=== PATIENT | male | born 1970 | race African-American/Black ===

== ENCOUNTER 2016-02-02 14:52 | Inpatient (IN) | payer OTHER ==
[2016-02-02 15:09] VITALS: BMI 27.3
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
[2016-02-02] MEDS ORDERED: guaiFENesin/D-METHORPHAN HB 10 ML UNIT-DOSE CUPS PO PRN (16:19)
[2016-02-02] MEDS ORDERED: chlordiazePOXIDE HCL 25 MG CAPSULE PO PRN (16:19)
[2016-02-02] MEDS ORDERED: METHADONE HCL 10 MG TABLET (FOR DETOX USE ONLY) PO ONE ×3 (16:19→23:00)
[2016-02-02] MEDS ORDERED: hydrOXYzine PAMOATE 50 MG CAPSULE (FP) PO PRN (16:19)
[2016-02-02] MEDS ORDERED: MENTHOL/PHENOL 1 EACH UD MM PRN (16:19)
[2016-02-02] MEDS ORDERED: ACETAMINOPHEN 325 MG TABLET (FP) PO PRN (16:19)
[2016-02-02] MEDS ORDERED: chlordiazePOXIDE HCL 25 MG CAPSULE PO ONE (16:19)
[2016-02-02] MEDS ORDERED: IBUPROFEN 400 MG TABLET (FP) PO PRN (16:19)
[2016-02-02] MEDS ORDERED: MAGNESIUM HYDROX 2400MG/30ML ORAL SUSPENSION 30 ML CUP PO PRN (16:19)
[2016-02-02] MEDS ORDERED: MAG HYDROX/AL HYDROX/SIMETH 30 ML UNIT-DOSE CUP PO PRN (16:19)
[2016-02-02] MEDS ORDERED: NICOTINE POLACRILEX 2 MG GUM BUC PRN (16:19)
[2016-02-02] MEDS ORDERED: LOPERAMIDE HCL 2 MG CAPSULE PO PRN (16:19)
[2016-02-02] MEDS ORDERED: MAGNESIUM CITRATE 300 ML BOTTLE PO PRN (16:19)
[2016-02-02] MEDS ORDERED: P-EPHED 60MG/TRIPROLIDI 2.5MG TABLET PO PRN (16:19)
[2016-02-02] MEDS: chlordiazePOXIDE HCL 25 MG CAPSULE PO SCH ×2 (20:33→22:11)
[2016-02-02] MEDS: NICOTINE 21 MG/24 HOURS TOPICAL PATCH TD SCH (20:34)
[2016-02-02] MEDS ORDERED: diphenhydrAMINE HCL 50 MG CAPSULE PO PRN (22:00)
[2016-02-02] MEDS: cloNIDine HCL 0.1 MG TABLET PO SCH (22:10)
[2016-02-02] MEDS: THIAMINE HCL 100 MG TABLET (FP) PO SCH (22:10)
[2016-02-02 23:16] LABS: URINE APPEARANCE CLEAR; URINE BILIRUBIN NEGATIVE (NEGATIVE); URINE BLOOD NEGATIVE (NEGATIVE); URINE COLOR LTYELLOW; URINE GLUCOSE (UA) NEGATIVE (NEGATIVE); URINE KETONE NEGATIVE (NEGATIVE); URINE LEUK ESTERASE NEGATIVE (NEGATIVE); URINE NITRITE NEGATIVE (NEGATIVE); URINE PROTEIN NEGATIVE (NEGATIVE); URINE UROBILINOGEN NEGATIVE E.U./dl (0.2-1.0)
[2016-02-03] MEDS: chlordiazePOXIDE HCL 25 MG CAPSULE PO SCH ×4 (05:24→22:12)
--- NOTE | 2016-02-03 09:17 | CONSULT ---
[facility] Psychiatric Consult - Data Date of interview: 02/03/16 Admission source: [facility] Identifying data: This is 45 years old male with psychiatric hospitalization history intoxicated with Alcohol, Cannabis, Opioids, Nicotine, Crack and K-2 Substance Abuse History: - Smoking Cessation. Smoking history: Current every day smoker. Have you smoked in the past 12 months: Yes. Aproximately how many cigarettes per day: 20. Hx Chewing Tobacco Use: No. Initiated information on smoking cessation: Yes. 'Breaking Loose' booklet given: 02/02/16. - Substance & Tx. History. Hx Alcohol Use: Yes. Hx Substance Use: Yes. Substance Use Type : Alcohol, Cocaine, Heroin, Marijuana (K2). Hx Substance Use Treatment: Yes ( DETOX). - Substances Abused. Heroin. Route: Inhalation. Frequency: Daily. Amount used: 10-15 bags. Age of first use: 33. Date of Last Use: 01/31. Crack. Route: Smoking. Frequency: 3-6 times per week. Amount used: $ 20. Age of first use: 21. Date of Last Use: 01/31/16. Alcohol-beer/ audra. Route: Oral. Frequency: 3-6 times per week. Amount used: 2-6 pks./1 1 /2 pts. Age of first use: 21. Date of Last Use: 02/01/16. Marijuana. Route: Smoking. Frequency: 3-6 times per week. Amount used: $10-15. Age of first use: 21. Date of Last Use: 01/30/16. K2. Route: Smoking. Frequency : 3-6 times per week. Amount used: $4-5. Age of first use: 43. Date of Last Use: 01/31/16 Medical History: Denies significant medical history Psychiatric History: Patient reports history of depression and anxiety, insomnia , reports taking prior to admission: Seroquel 100mg po qhs. Trazodone 50mg po qhs. Reports recent psychiatrioc admission on (recently?), at [facility], reports not using K-2 this time Physical/Sexual Abuse/Trauma History: Denies Additional Comment: Seroquel 100mg po qhs. Trazodone 50mg po qhs Mental Status Exam - Mental Status Exam Alert and Oriented to: Person Cognitive Function: Fair Patient Appearance: Unkempt Mood: Sad Affect: Flat Patient Behavior: Sedated Speech Pattern: Delayed, Slurred Voice Loudness: Moderately Soft/Quiet Thought Process: Circumstantial Thought Disorder: Present Hallucinations: Denies Suicidal Ideation: Denies Homicidal Ideation: Denies Insight/Judgement: Fair Sleep: Difficulty falling asleep Appetite: Weight loss Muscle strength/Tone: Mild Hypotonicity Gait/Station: Shuffling Additional Comments: Seroquel 100mg po qhs. Trazodone 50mg po qhs Psychiatric Findings - Problem List ([place] 1, 2,3) (1) Alcohol dependence with uncomplicated withdrawal Current Visit: Yes Status: Acute (2) Opioid dependence with withdrawal Current Visit: Yes Status: Acute (3) Cannabis dependence Current Visit: Yes Status: Acute (4) Crack cocaine use Current Visit: Yes Status: Acute (5) Nicotine dependence Current Visit: Yes Status: Acute (6) Drug-induced mood disorder Current Visit: Yes Status: Acute - Initial Treatment Plan Initial Treatment Plan: Seroquel 100mg po qhs. Trazodone 50mg po qhs
[2016-02-03] MEDS ORDERED: METHADONE HCL 10 MG TABLET (FOR DETOX USE ONLY) PO SCH (10:00)
[2016-02-03] MEDS: NICOTINE 21 MG/24 HOURS TOPICAL PATCH TD SCH (10:22)
[2016-02-03] MEDS: cloNIDine HCL 0.1 MG TABLET PO SCH ×2 (10:23→22:11)
[2016-02-03] MEDS: PRENATAL VITAMINS W/ FOLIC ACID TABLET (FP) PO SCH (10:23)
--- NOTE | 2016-02-03 10:26 | PN ---
[facility] CIWA - CIWA Score Nausea/Vomitin-Mild Nausea/No Vomiting Muscle Tremors: 4-Moderate,w/Arms Extend Anxiety: 4-Mod. Anxious/Guarded Agitation: 4-Moderately Restless Paroxysmal Sweats: 3 Orientation: 0-Oriented Tacttile Disturbances: 0-None Auditory Disturbances: 0-None Visual Disturbances: 0-None Headache: 1-Very Mild CIWA-Ar Total Score: 17 [facility] COWS - Scale Resting Pulse: 0= [place] 80 or Below Sweatin=Flushed/Facial Moisture Restless Observation: 1= Difficult to Sit Still Pupil Size: 0= Normal to Room Light Bone or Joint Aches: 2= Severe Diffuse Aches Runny Nose/ Eye Tearin= Nasal Congestion GI Upset > 30mins: 0= None Tremor Observation of Outstretched Hands: 2= Slight Tremor Visible Yawning Observation: 2= >3x During Session Anxiety or Irritability: 2=Irritable/Anxious Goose Flesh Skin: 3=Piloerection COWS Score: 15 S Progress Note (SOAP) Subjective: headache sweats shakes interrupted sleep agitation anxiety chills Objective: 02/03/16 10:25 Vital Signs Temperature 98.2 F 02/03/16 05:58 Pulse Rate 69 02/03/16 05:58 Respiratory Rate 16 02/03/16 05:58 Blood Pressure 135/72 02/03/16 05:58 O2 Sat by Pulse Oximetry (%) Laboratory Tests 02/02/16 22:00 Urine Color Ltyellow Urine Appearance Clear Urine pH 6.0 Ur Specific [place] 1.015 Urine Protein Negative Urine Glucose (UA) Negative Urine Ketones Negative Urine Blood Negative Urine Nitrite Negative Urine Bilirubin Negative Urine Urobilinogen Negative Ur Leukocyte Esterase Negative labs pending awake/alert ambulating no acute distress Assessment: 02/03/16 10:26 withdrawal sx Plan: continue detox increase fluids labs pending
[2016-02-03 11:35] LABS: MCH 32.5 pg (25.7-33.7); MCHC 33.4 g/dl (32.0-35.9); MEAN CELL VOLUME 97.4 fl (80-96); MEAN PLT VOLUME 7.8 fl (7.5-11.1); PLATELET COUNT 233 K/MM3 (134-434); RDW 14.3 % (11.9-15.9); WHITE BLOOD COUNT 7.1 K/mm3 (4.0-10.0)
[2016-02-03 11:58] LABS: ANION GAP 6 (8-16); CALCIUM 8.4 mg/dL (8.5-10.1); CO2 29 mmol/L (21-32); GLUCOSE,RANDOM 82 mg/dL (74-106)
[2016-02-03 12:02] LABS: ALK PHOS 57 U/L (45-117); BILIRUBIN,TOTAL 0.2 mg/dL (0.2-1.0); CREATININE 0.8 mg/dL (0.7-1.3); SGOT/AST 15 U/L (15-37); SGPT/ALT 16 U/L (12-78); TOT PROT 6.1 g/dl (6.4-8.2)
[2016-02-03] MEDS: QUEtiapine FUMARATE 100 MG TABLET (FP) PO SCH (22:11)
[2016-02-03] MEDS: THIAMINE HCL 100 MG TABLET (FP) PO SCH (22:11)
[2016-02-03] MEDS: traZODone HCL 50 MG TABLET (FP) PO SCH (22:11)
[2016-02-04] MEDS: chlordiazePOXIDE HCL 25 MG CAPSULE PO SCH ×2 (05:15→10:03)
[2016-02-04] MEDS: PRENATAL VITAMINS W/ FOLIC ACID TABLET (FP) PO SCH (10:03)
[2016-02-04] MEDS: METHADONE HCL 5 MG TABLET (FOR DETOX USE ONLY) PO SCH (10:03)
[2016-02-04] MEDS: cloNIDine HCL 0.1 MG TABLET PO SCH ×2 (10:03→23:07)
--- NOTE | 2016-02-04 10:51 | PN ---
[facility] CIWA - CIWA Score Nausea/Vomitin Muscle Tremors: 3 Anxiety: 2 Agitation: 2 Paroxysmal Sweats: 1-Minimal Palms Moist Orientation: 0-Oriented Tacttile Disturbances: 1-Very Mild Itch/Numbness Auditory Disturbances: 1-Very Mild Visual Disturbances: 1-Very Mild Sensitivity Headache: 2-Mild CIWA-Ar Total Score: 16 [facility] COWS - Scale Resting Pulse: 0= [place] 80 or Below Sweatin= Chills/Flushing Restless Observation: 3= Extraneous Movement Pupil Size: 1= Pupils >than Normal Bone or Joint Aches: 2= Severe Diffuse Aches Runny Nose/ Eye Tearin= Runny Nose/Eyes GI Upset > 30mins: 2= Nausea/Diarrhea Tremor Observation of Outstretched Hands: 2= Slight Tremor Visible Yawning Observation: 1= 1-2x During Session Anxiety or Irritability: 2=Irritable/Anxious Goose Flesh Skin: 0=Smooth Skin COWS Score: 16 [facility] Progress Note (SOAP) Subjective: alert,irritable,anxious,interrupted sleep,tremor,pain in the body and back Objective: 02/04/16 10:50 Vital Signs Temperature 98.3 F 02/04/16 10:06 Pulse Rate 80 02/04/16 10:06 Respiratory Rate 18 02/04/16 10:06 Blood Pressure 136/81 02/04/16 10:06 O2 Sat by Pulse Oximetry (%) Laboratory Last Values WBC 7.1 K/mm3 (4.0-10.0) 02/03/16 07:30 RBC 3.68 M/mm3 (4.00-5.60) L 02/03/16 07:30 Hgb 12.0 GM/dL (11.7-16.9) 02/03/16 07:30 Hct 35.8 % (35.4-49) 02/03/16 07:30 MCV 97.4 fl (80-96) H 02/03/16 07:30 MCHC 33.4 g/dl (32.0-35.9) 02/03/16 07:30 RDW 14.3 % (11.9-15.9) 02/03/16 07:30 Plt Count 233 K/MM3 (134-434) 02/03/16 07:30 MPV 7.8 fl (7.5-11.1) 02/03/16 07:30 Sodium 141 mmol/L (136-145) 02/03/16 07:30 Potassium 4.1 mmol/L (3.5-5.1) 02/03/16 07:30 Chloride 106 mmol/L (98-107) 02/03/16 07:30 Carbon Dioxide 29 mmol/L (21-32) 02/03/16 07:30 Anion Gap 6 (8-16) L 02/03/16 07:30 BUN 17 mg/dL (7-18) 02/03/16 07:30 Creatinine 0.8 mg/dL (0.7-1.3) 02/03/16 07:30 Creat Clearance w eGFR > 60 (>60) 02/03/16 07:30 Random Glucose 82 mg/dL (74-106) 02/03/16 07:30 Calcium 8.4 mg/dL (8.5-10.1) L 02/03/16 07:30 Total Bilirubin 0.2 mg/dL (0.2-1.0) 02/03/16 07:30 AST 15 U/L (15-37) 02/03/16 07:30 ALT 16 U/L (12-78) 02/03/16 07:30 Alkaline Phosphatase 57 U/L (45-117) 02/03/16 07:30 Total Protein 6.1 g/dl (6.4-8.2) L 02/03/16 07:30 Albumin 3.0 g/dl (3.4-5.0) L 02/03/16 07:30 Urine Color Ltyellow 02/02/16 22:00 Urine Appearance Clear 02/02/16 22:00 Urine pH 6.0 (5.0-8.0) 02/02/16 22:00 Ur Specific [place] 1.015 (1.001-1.035) 02/02/16 22:00 Urine Protein Negative (NEGATIVE) 02/02/16 22:00 Urine Glucose (UA) Negative (NEGATIVE) 02/02/16 22:00 Urine Ketones Negative (NEGATIVE) 02/02/16 22:00 Urine Blood Negative (NEGATIVE) 02/02/16 22:00 Urine Nitrite Negative (NEGATIVE) 02/02/16 22:00 Urine Bilirubin Negative (NEGATIVE) 02/02/16 22:00 Urine Urobilinogen Negative E.U./dl (0.2-1.0) 02/02/16 22:00 Ur Leukocyte Esterase Negative (NEGATIVE) 02/02/16 22:00 RPR Titer Nonreactive (NONREACTIVE) 02/03/16 07:30 Assessment: 02/04/16 10:51 withdrawal symptom Plan: continue detox
[2016-02-04] MEDS: NICOTINE 21 MG/24 HOURS TOPICAL PATCH TD SCH (11:42)
[2016-02-04] MEDS: chlordiazePOXIDE 5 MG CAPSULE PO SCH ×2 (17:35→23:07)
[2016-02-04] MEDS: traZODone HCL 50 MG TABLET (FP) PO SCH (23:07)
[2016-02-04] MEDS: THIAMINE HCL 100 MG TABLET (FP) PO SCH (23:07)
[2016-02-04] MEDS: QUEtiapine FUMARATE 100 MG TABLET (FP) PO SCH (23:07)
[2016-02-05] MEDS: chlordiazePOXIDE 5 MG CAPSULE PO SCH ×2 (05:47→11:07)
[2016-02-05] MEDS: NICOTINE 21 MG/24 HOURS TOPICAL PATCH TD SCH (10:45)
[2016-02-05] MEDS: PRENATAL VITAMINS W/ FOLIC ACID TABLET (FP) PO SCH (11:07)
[2016-02-05] MEDS: cloNIDine HCL 0.1 MG TABLET PO SCH ×2 (11:07→22:21)
[2016-02-05] MEDS: METHADONE HCL 5 MG TABLET (FOR DETOX USE ONLY) PO SCH (11:07)
--- NOTE | 2016-02-05 12:28 | PN ---
[facility] Progress Note (SOAP) Subjective: alert,irritable,anxious,interrupted sleep,pain in the body Objective: 02/05/16 12:27 Vital Signs Temperature 96.3 F L 02/05/16 10:00 Pulse Rate 70 02/05/16 10:00 Respiratory Rate 18 02/05/16 10:00 Blood Pressure 136/77 02/05/16 10:00 O2 Sat by Pulse Oximetry (%) Assessment: 02/05/16 12:27 withdrawal symptom Plan: continue detox
[2016-02-05] MEDS: chlordiazePOXIDE HCL 10 MG CAPSULE PO SCH ×2 (17:22→22:19)
[2016-02-05] MEDS: QUEtiapine FUMARATE 100 MG TABLET (FP) PO SCH (22:20)
[2016-02-05] MEDS: traZODone HCL 50 MG TABLET (FP) PO SCH (22:20)
[2016-02-05] MEDS: THIAMINE HCL 100 MG TABLET (FP) PO SCH (22:20)
[2016-02-06] MEDS: chlordiazePOXIDE HCL 10 MG CAPSULE PO SCH ×2 (05:29→10:34)
[2016-02-06] MEDS ORDERED: METHADONE HCL 10 MG TABLET (FOR DETOX USE ONLY) PO SCH (10:00)
[2016-02-06] MEDS: PRENATAL VITAMINS W/ FOLIC ACID TABLET (FP) PO SCH (10:34)
[2016-02-06] MEDS: cloNIDine HCL 0.1 MG TABLET PO SCH ×2 (10:34→22:38)
[2016-02-06] MEDS: NICOTINE 21 MG/24 HOURS TOPICAL PATCH TD SCH (10:35)
--- NOTE | 2016-02-06 11:00 | PN ---
[facility] Progress Note (SOAP) Subjective: SWEATING,INTERRUPTED SLEEP,RESTLESS. Objective: 02/06/16 11:00 Vital Signs - 8 hr 02/06/16 02/06/16 02/06/16 03:30 06:00 10:00 Temperature 97.5 F L 97.0 F L Pulse Rate 65 61 Respiratory 18 20 18 Rate Blood Pressure 113/70 147/78 Laboratory Last Values WBC 7.1 K/mm3 (4.0-10.0) 02/03/16 07:30 RBC 3.68 M/mm3 (4.00-5.60) L 02/03/16 07:30 Hgb 12.0 GM/dL (11.7-16.9) 02/03/16 07:30 Hct 35.8 % (35.4-49) 02/03/16 07:30 MCV 97.4 fl (80-96) H 02/03/16 07:30 MCHC 33.4 g/dl (32.0-35.9) 02/03/16 07:30 RDW 14.3 % (11.9-15.9) 02/03/16 07:30 Plt Count 233 K/MM3 (134-434) 02/03/16 07:30 MPV 7.8 fl (7.5-11.1) 02/03/16 07:30 Sodium 141 mmol/L (136-145) 02/03/16 07:30 Potassium 4.1 mmol/L (3.5-5.1) 02/03/16 07:30 Chloride 106 mmol/L (98-107) 02/03/16 07:30 Carbon Dioxide 29 mmol/L (21-32) 02/03/16 07:30 Anion Gap 6 (8-16) L 02/03/16 07:30 BUN 17 mg/dL (7-18) 02/03/16 07:30 Creatinine 0.8 mg/dL (0.7-1.3) 02/03/16 07:30 Creat Clearance w eGFR > 60 (>60) 02/03/16 07:30 Random Glucose 82 mg/dL (74-106) 02/03/16 07:30 Calcium 8.4 mg/dL (8.5-10.1) L 02/03/16 07:30 Total Bilirubin 0.2 mg/dL (0.2-1.0) 02/03/16 07:30 AST 15 U/L (15-37) 02/03/16 07:30 ALT 16 U/L (12-78) 02/03/16 07:30 Alkaline Phosphatase 57 U/L (45-117) 02/03/16 07:30 Ammonia 88.42 umol/L (11-32) H 02/04/16 06:30 Total Protein 6.1 g/dl (6.4-8.2) L 02/03/16 07:30 Albumin 3.0 g/dl (3.4-5.0) L 02/03/16 07:30 Urine Color Ltyellow 02/02/16 22:00 Urine Appearance Clear 02/02/16 22:00 Urine pH 6.0 (5.0-8.0) 02/02/16 22:00 Ur Specific [place] 1.015 (1.001-1.035) 02/02/16 22:00 Urine Protein Negative (NEGATIVE) 02/02/16 22:00 Urine Glucose (UA) Negative (NEGATIVE) 02/02/16 22:00 Urine Ketones Negative (NEGATIVE) 02/02/16 22:00 Urine Blood Negative (NEGATIVE) 02/02/16 22:00 Urine Nitrite Negative (NEGATIVE) 02/02/16 22:00 Urine Bilirubin Negative (NEGATIVE) 02/02/16 22:00 Urine Urobilinogen Negative E.U./dl (0.2-1.0) 02/02/16 22:00 Ur Leukocyte Esterase Negative (NEGATIVE) 02/02/16 22:00 RPR Titer Nonreactive (NONREACTIVE) 02/03/16 07:30 LABS NOTED Assessment: 02/06/16 11:00 WITHDRAWAL SX. Plan: CONTINUE DETOX
[2016-02-06] MEDS: QUEtiapine FUMARATE 100 MG TABLET (FP) PO SCH (22:38)
[2016-02-06] MEDS: THIAMINE HCL 100 MG TABLET (FP) PO SCH (22:38)
[2016-02-06] MEDS: traZODone HCL 50 MG TABLET (FP) PO SCH (22:38)
[2016-02-07] MEDS ORDERED: METHADONE HCL 5 MG TABLET (FOR DETOX USE ONLY) PO SCH (06:00)
--- NOTE | 2016-02-07 08:17 | PN ---
S Progress Note (SOAP) Subjective: ALERT,NO COMPLAINT Objective: 02/07/16 08:16 Vital Signs Temperature 97.7 F 02/07/16 06:00 Pulse Rate 69 02/07/16 06:00 Respiratory Rate 18 02/07/16 06:00 Blood Pressure 109/62 02/07/16 06:00 O2 Sat by Pulse Oximetry (%) Assessment: 02/07/16 08:16 DETOX COMPLETED,NO WITHDRAWAL SYMPTOM Plan: DISCHARGE TODAY,FOLLOW UP WITH AFTER CARE PROGRAM ARRANGEMENT
--- NOTE | 2016-02-07 08:18 | DS ---
[facility] Detox Discharge Summary Admission Date: 02/02/16 Discharge Date: 02/07/16 - History Present History: Alcohol Dependence, Cannabis Dependence, Cocaine Dependence, Opioid Dependence, K 2 Additional Comments: FOLLOW UP WITH AFTER CARE PROGRAM [facility] [id number] - Physical Exam Results Vital Signs: Vital Signs Temperature 97.7 F 02/07/16 06:00 Pulse Rate 69 02/07/16 06:00 Respiratory Rate 18 02/07/16 06:00 Blood Pressure 109/62 02/07/16 06:00 O2 Sat by Pulse Oximetry (%) Pertinent Admission Physical Exam Findings: WITHDRAWAL SYMPTOM - Treatment Hospital Course: Detox Protocol Followed, Detoxed Safely, Responded well, Discharged Condition Good Patient has Accepted a Rehab Referral to: [facility]CL[facility]ED - Medication Discharge Medications: Ambulatory Orders Clonidine HCl [Catapres] 0.2 mg PO DAILY 02/02/16 Quetiapine Fumarate [Seroquel] 100 mg PO HS #30 tablet 02/03/16 Trazodone HCl 50 mg PO HS #30 tablet 02/03/16 - AMA Did Patient Leave Against Medical Advice: No
[2016-02-07 10:19] VITALS: BP 129/71; PULSE 67; TEMP 97.3
[2016-02-07] MEDS: cloNIDine HCL 0.1 MG TABLET PO SCH (10:30)
[2016-02-07] MEDS: PRENATAL VITAMINS W/ FOLIC ACID TABLET (FP) PO SCH (10:30)
[2016-02-07] MEDS: NICOTINE 21 MG/24 HOURS TOPICAL PATCH TD SCH (10:30)
== END 2016-02-07 09:50 | disposition home or self-care (01) | DRG 773 ==
LOC: YASAS 14:52 → Y6N 19:03
PROVIDERS: ADMIT Internal Medicine Addiction Medicine; ATTEND Internal Medicine Addiction Medicine
PROC: HZ2ZZZZ Detoxification Services for Substance Abuse Treatment (ICD-10-PCS; principal; 2016-02-02)
DX: F11.23 Opioid dependence with withdrawal (principal); F10.230 Alcohol dependence with withdrawal, uncomplicated; F14.20 Cocaine dependence, uncomplicated; F12.20 Cannabis dependence, uncomplicated; F17.210 Nicotine dependence, cigarettes, uncomplicated; F19.24 Other psychoactive substance dependence with psychoactive substance-induced mood disorder; I10 Essential (primary) hypertension; K21.9 Gastro-esophageal reflux disease without esophagitis; Z86.69 Personal history of other diseases of the nervous system and sense organs
CPT/HCPCS: 36415; 80053; 81003; 82140; 85027; 86593; 93005; 93010

== ENCOUNTER 2016-05-01 09:25 | Inpatient (IN) | payer OTHER ==
[2016-05-01 12:57] VITALS: BMI 24.0
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
[2016-05-01] MEDS ORDERED: NICOTINE POLACRILEX 4 MG GUM BUC PRN (14:23)
[2016-05-01] MEDS ORDERED: chlordiazePOXIDE HCL 25 MG CAPSULE PO PRN (14:23)
[2016-05-01] MEDS ORDERED: MAG HYDROX/AL HYDROX/SIMETH 30 ML UNIT-DOSE CUP PO PRN (14:23)
[2016-05-01] MEDS ORDERED: P-EPHED 60MG/TRIPROLIDI 2.5MG TABLET PO PRN (14:23)
[2016-05-01] MEDS ORDERED: LOPERAMIDE HCL 2 MG CAPSULE PO PRN (14:23)
[2016-05-01] MEDS ORDERED: diphenhydrAMINE HCL 50 MG CAPSULE PO PRN (14:23)
[2016-05-01] MEDS ORDERED: MENTHOL/PHENOL 1 EACH UD MM PRN (14:23)
[2016-05-01] MEDS ORDERED: MAGNESIUM CITRATE 300 ML BOTTLE PO PRN (14:23)
[2016-05-01] MEDS ORDERED: hydrOXYzine PAMOATE 50 MG CAPSULE (FP) PO PRN (14:23)
[2016-05-01] MEDS ORDERED: IBUPROFEN 400 MG TABLET (FP) PO PRN (14:23)
[2016-05-01] MEDS ORDERED: MAGNESIUM HYDROX 2400MG/30ML ORAL SUSPENSION 30 ML CUP PO PRN (14:23)
[2016-05-01] MEDS ORDERED: guaiFENesin/D-METHORPHAN HB 10 ML UNIT-DOSE CUPS PO PRN (14:23)
[2016-05-01] MEDS ORDERED: chlordiazePOXIDE HCL 25 MG CAPSULE PO ONE (15:00)
[2016-05-01] MEDS ORDERED: ACETAMINOPHEN 325 MG TABLET (FP) PO PRN (15:00)
[2016-05-01] MEDS ORDERED: METHADONE HCL 10 MG TABLET (FOR DETOX USE ONLY) PO ONE ×2 (15:01→23:00)
[2016-05-01] MEDS ORDERED: chlordiazePOXIDE HCL 25 MG CAPSULE PO SCH (17:00)
[2016-05-01 17:12] LABS: URINE APPEARANCE CLEAR; URINE BILIRUBIN NEGATIVE (NEGATIVE); URINE BLOOD NEGATIVE (NEGATIVE); URINE COLOR YELLOW; URINE GLUCOSE (UA) NEGATIVE (NEGATIVE); URINE KETONE NEGATIVE (NEGATIVE); URINE LEUK ESTERASE NEGATIVE (NEGATIVE); URINE NITRITE NEGATIVE (NEGATIVE); URINE PROTEIN NEGATIVE (NEGATIVE); URINE UROBILINOGEN NEGATIVE E.U./dl (0.2-1.0)
[2016-05-01 17:24] VITALS: BP 139/76; PULSE 95; TEMP 99.8
[2016-05-01] MEDS ORDERED: FLUOCINONIDE 0.05% TOP OINT (60 GM TUBE) TP SCH (18:00)
--- NOTE | 2016-05-01 19:14 | PN ---
S Progress Note Note: Psychiatry Attending's note : Called for initiation of orders. Medications requested by nurse : seroquel 100 mg po hs trazodone 50 mg po hs Pharmacy claims reviewed. Doses confirmed.[facility] report appreciated. Patient is already known to this service. Approached for interview.Found asleep. Was argumentative earlier,as per staff's report. Reason given : " I want my medications tonight." Comment reported to ticket writer by nurse on duty. Orders entered.
[2016-05-01] MEDS ORDERED: cloNIDine HCL 0.1 MG TABLET ONE (19:38)
--- NOTE | 2016-05-01 21:40 | DS ---
[facility] Detox Discharge Summary Admission Date: 05/01/16 Discharge Date: 05/01/16 - History Present History: Alcohol Dependence, Cocaine Dependence, Opioid Dependence - Physical Exam Results Vital Signs: Vital Signs Temperature 99.8 F H 05/01/16 17:23 Pulse Rate 95 H 05/01/16 17:23 Respiratory Rate 19 05/01/16 17:23 Blood Pressure 139/76 05/01/16 17:23 O2 Sat by Pulse Oximetry (%) - Medication Discharge Medications: Ambulatory Orders Quetiapine Fumarate [Seroquel] 100 mg PO HS #30 tablet 02/03/16 Trazodone HCl 50 mg PO HS #30 tablet 02/03/16 - Diagnosis (1) Alcohol dependence with uncomplicated withdrawal Current Visit: Yes Status: Chronic (2) Cannabis dependence Current Visit: Yes Status: Chronic (3) Nicotine dependence Current Visit: Yes Status: Chronic Qualifiers: Nicotine product type: cigarettes Substance use status: uncomplicated Qualified Code(s): F17.210 - Nicotine dependence, cigarettes, uncomplicated (4) Opioid dependence with withdrawal Current Visit: Yes Status: Chronic - AMA Did Patient Leave Against Medical Advice: Yes (ADMINISTRATIVE DISCHARGE-NOT ADHERING TO UNIT RULES. )
[2016-05-01] MEDS ORDERED: THIAMINE HCL 100 MG TABLET (FP) PO SCH (22:00)
[2016-05-01] MEDS ORDERED: cloNIDine HCL 0.1 MG TABLET PO SCH (22:00)
[2016-05-01] MEDS ORDERED: traZODone HCL 50 MG TABLET (FP) PO SCH (22:00)
[2016-05-01] MEDS ORDERED: QUEtiapine FUMARATE 100 MG TABLET (FP) PO SCH (22:00)
[2016-05-02] MEDS ORDERED: NICOTINE 21 MG/24 HOURS TOPICAL PATCH TD SCH (10:00)
[2016-05-02] MEDS ORDERED: PRENATAL VITAMINS W/ FOLIC ACID TABLET (FP) PO SCH (10:00)
[2016-05-02] MEDS ORDERED: METHADONE HCL 10 MG TABLET (FOR DETOX USE ONLY) PO SCH (10:00)
--- NOTE | 2016-05-02 13:43 | EKG ---
Test Reason : Blood Pressure : / mmHG Vent. Rate : 078 BPM Atrial Rate : 078 BPM P-R Int : 154 ms QRS Dur : 092 ms QT Int : 372 ms P-R-T Axes : 060 070 063 degrees QTc Int : 424 ms NORMAL SINUS RHYTHM MINIMAL VOLTAGE CRITERIA FOR LVH, MAY BE NORMAL VARIANT BORDERLINE ECG NO PREVIOUS ECGS AVAILABLE Confirmed by ISAIAH JOHNSON MD ([id number]) on 05/02/2016 1:43:05 PM Referred By: Antonio Matos Confirmed By:ISAIAH JOHNSON MD
[2016-05-02] MEDS ORDERED: chlordiazePOXIDE HCL 25 MG CAPSULE PO SCH (17:00)
[2016-05-03] MEDS ORDERED: METHADONE HCL 5 MG TABLET (FOR DETOX USE ONLY) PO SCH (10:00)
[2016-05-03] MEDS ORDERED: chlordiazePOXIDE 5 MG CAPSULE PO SCH (17:00)
[2016-05-04] MEDS ORDERED: chlordiazePOXIDE HCL 10 MG CAPSULE PO SCH (17:00)
[2016-05-05] MEDS ORDERED: METHADONE HCL 10 MG TABLET (FOR DETOX USE ONLY) PO SCH (10:00)
[2016-05-06] MEDS ORDERED: METHADONE HCL 5 MG TABLET (FOR DETOX USE ONLY) PO SCH (06:00)
== END 2016-05-01 19:36 | disposition home or self-care (01) | DRG 773 ==
LOC: YASAS 09:25 → Y3N 14:25
PROVIDERS: ADMIT Internal Medicine; ATTEND Internal Medicine
PROC: HZ2ZZZZ Detoxification Services for Substance Abuse Treatment (ICD-10-PCS; principal; 2016-05-01)
DX: F11.23 Opioid dependence with withdrawal (principal); F10.230 Alcohol dependence with withdrawal, uncomplicated; F12.20 Cannabis dependence, uncomplicated; F14.90 Cocaine use, unspecified, uncomplicated; R21 Rash and other nonspecific skin eruption; K21.9 Gastro-esophageal reflux disease without esophagitis; I10 Essential (primary) hypertension; Z86.69 Personal history of other diseases of the nervous system and sense organs; F91.8 Other conduct disorders
CPT/HCPCS: 81003; 93005; 93010

== ENCOUNTER 2018-02-19 14:07 | Inpatient (IN) | payer OTHER ==
[2018-02-19 16:50] VITALS: BMI 22.8
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
[2018-02-19] MEDS ORDERED: LOPERAMIDE HCL 2 MG CAPSULE PO PRN (19:20)
[2018-02-19] MEDS ORDERED: guaiFENesin/D-METHORPHAN HB 10 ML UNIT-DOSE CUPS PO PRN (19:20)
[2018-02-19] MEDS ORDERED: hydrOXYzine PAMOATE 50 MG CAPSULE (FP) PO PRN (19:20)
[2018-02-19] MEDS ORDERED: ACETAMINOPHEN 325 MG TABLET (FP) PO PRN (19:20)
[2018-02-19] MEDS ORDERED: MAG HYDROX/AL HYDROX/SIMETH 30 ML UNIT-DOSE CUP PO PRN (19:20)
[2018-02-19] MEDS ORDERED: chlordiazePOXIDE HCL 25 MG CAPSULE PO PRN (19:20)
[2018-02-19] MEDS ORDERED: NICOTINE POLACRILEX 4 MG GUM BC PRN (19:20)
[2018-02-19] MEDS ORDERED: MAGNESIUM CITRATE 300 ML BOTTLE PO PRN (19:20)
[2018-02-19] MEDS ORDERED: MAGNESIUM HYDROX 2400MG/30ML ORAL SUSPENSION 30 ML CUP PO PRN (19:20)
[2018-02-19] MEDS ORDERED: MENTHOL/PHENOL 1 EACH UD MM PRN (19:20)
[2018-02-19] MEDS ORDERED: P-EPHED 60MG/TRIPROLIDI 2.5MG TABLET PO PRN (19:20)
[2018-02-19] MEDS ORDERED: IBUPROFEN 400 MG TABLET (FP) PO PRN (19:20)
[2018-02-19] MEDS ORDERED: COLLOIDAL OATMEAL 1 BAR EACH TP PRN (19:23)
[2018-02-19] MEDS ORDERED: METHADONE HCL 10 MG TABLET (FOR DETOX USE ONLY) PO ONE ×2 (19:45→23:00)
[2018-02-19] MEDS ORDERED: chlordiazePOXIDE HCL 25 MG CAPSULE PO ONE (19:45)
[2018-02-19] MEDS ORDERED: cloNIDine HCL 0.1 MG TABLET PO ONE (21:03)
--- NOTE | 2018-02-19 21:08 | PN ---
S Progress Note Note: Patient's blood pressure is B/P 168/103. Patient is asymptomatic Vital Signs Temperature 99.1 F 02/19/18 21:01 Pulse Rate 70 02/19/18 21:01 Respiratory Rate 18 02/19/18 21:01 Blood Pressure 168/103 H 02/19/18 21:01 O2 Sat by Pulse Oximetry (%) Action: Clonidine 0.1mg tablet oral ordered
[2018-02-19] MEDS ORDERED: MELATONIN 5 MG TABLETS PO PRN (22:00)
[2018-02-19] MEDS ORDERED: THIAMINE HCL 100 MG TABLET (FP) PO SCH (22:00)
[2018-02-19] MEDS: FLUOCINONIDE 0.05% CREAM (60 GM TUBE) TP SCH (22:49)
[2018-02-19] MEDS: chlordiazePOXIDE HCL 25 MG CAPSULE PO SCH (22:50)
[2018-02-20] MEDS: chlordiazePOXIDE HCL 25 MG CAPSULE PO SCH ×2 (05:06→10:50)
--- NOTE | 2018-02-20 07:05 | PN ---
[facility] Progress Note Note: Patient's blood pressure was B/P 166/95 . Patient is asymptomatic Vital Signs Temperature 97 F L 02/20/18 05:54 Pulse Rate 68 02/20/18 05:54 Respiratory Rate 18 02/20/18 06:23 Blood Pressure 166/95 02/20/18 05:54 O2 Sat by Pulse Oximetry (%) Action: Clonidine o.1mg 1 tablet oral ordered
[2018-02-20] MEDS ORDERED: cloNIDine HCL 0.1 MG TABLET PO ONE (07:30)
--- NOTE | 2018-02-20 07:40 | CONSULT ---
[facility] Psychiatric Consult - Data Date of interview: 02/20/18 Admission source: [facility] Identifying data: This is a 47 years old male, single father of two, unemployed , homeless, with no psychiatric hospitalization history, is here reporting withdrawal symptoms, reporting Heroin, Alcohol Nicotine dependence, seeking for detox. Denies suicidal, hopmicidal hiastory Substance Abuse History: Smoking history: Current every day smoker. Have you smoked in the past 12 months: Yes. Aproximately how many cigarettes per day: 20. Hx Chewing Tobacco Use: No. Initiated information on smoking cessation: Yes. 'Breaking Loose' booklet given: 02/19/18. - Substance & Tx. History. Hx Alcohol Use: Yes. Hx Substance Use: Yes. Substance Use Type: Alcohol, Heroin. Hx Substance Use Treatment: Yes (last detox [facility] 2yrs ago). - Substances Abused. Alcohol. Route: Oral. Frequency: Daily. Amount used: 2 40oz beer/ 2 six beer/one pint audra. Age of first use: 18. Date of Last Use: 02/17/18. Heroin. Route: Inhalation. Frequency: Daily. Amount used: 10 bags. Age of first use: 33. Date of Last Use: 02/18/18 Medical History: GERD, HTN, Psoriasis history Psychiatric History: Patient reports history of depression and anxiety, denies psychiatric hospitalization history, reports no suicidal, homicidal history as well, minimizing past psychiatric history, reports taking prior to admission: Trazodone 50mg po qhs. Seroquel 100mg po qhs. Risperdal 3mg po qhs Physical/Sexual Abuse/Trauma History: Denies Additional Comment: Trazodone 50mg po qhs. Seroquel 100mg po qhs. Risperdal 3mg po qhs Mental Status Exam - Mental Status Exam Alert and Oriented to: Person Cognitive Function: Fair Mood: Sad Affect: Flat Patient Behavior: Sedated Speech Pattern: Delayed Voice Loudness: Mildly Soft/Quiet Thought Process: Circumstantial, Goal Oriented Thought Disorder: Being Controlled Hallucinations: Denies Suicidal Ideation: Denies Homicidal Ideation: Denies Insight/Judgement: Fair Sleep: Difficulty falling asleep Appetite: Weight loss Muscle strength/Tone: Mild Hypotonicity Gait/Station: Shuffling Additional Comments: Trazodone 50mg po qhs. Seroquel 100mg po qhs. Risperdal 3mg po qhs Psychiatric Findings - Problem List ([facility] 1, 2,3) (1) Alcohol dependence with uncomplicated withdrawal Current Visit: Yes Status: Chronic (2) GERD (gastroesophageal reflux disease) Current Visit: Yes Status: Chronic Qualifiers: Esophagitis presence: without esophagitis (3) Hypertension Current Visit: Yes Status: Chronic Qualifiers: Hypertension type: essential hypertension (4) Opioid dependence with withdrawal Current Visit: Yes Status: Chronic (5) Plaque psoriasis Current Visit: Yes Status: Chronic (6) Drug-induced mood disorder Current Visit: No Status: Acute (7) Nicotine dependence Current Visit: No Status: Chronic Qualifiers: Nicotine product type: cigarettes Substance use status: uncomplicated Qualified Code(s): F17.210 - Nicotine dependence, cigarettes, uncomplicated - Initial Treatment Plan Initial Treatment Plan: Trazodone 50mg po qhs. Seroquel 100mg po qhs. Risperdal 3mg po qhs
[2018-02-20 09:09] VITALS: TEMP 98.5
[2018-02-20] MEDS ORDERED: NICOTINE 21 MG/24 HOURS TOPICAL PATCH TD SCH (10:00)
[2018-02-20] MEDS ORDERED: risperiDONE 3 MG TABLET PO SCH ×2 (10:00→22:00)
[2018-02-20] MEDS ORDERED: PRENATAL VITAMINS W/ FOLIC ACID TABLET (FP) PO SCH (10:00)
[2018-02-20] MEDS ORDERED: METHADONE HCL 10 MG TABLET (FOR DETOX USE ONLY) PO SCH (10:00)
[2018-02-20 10:17] LABS: HEMATOCRIT 38.8 % (35.4-49); MCH 32.7 pg (25.7-33.7); MCHC 33.6 g/dl (32.0-35.9); MEAN CELL VOLUME 97.3 fl (80-96); MEAN PLT VOLUME 8.4 fl (7.5-11.1); PLATELET COUNT 207 K/MM3 (134-434); RBC 3.99 M/mm3 (4.00-5.60); RDW 13.7 % (11.9-15.9); WHITE BLOOD COUNT 6.3 K/mm3 (4.0-10.0)
[2018-02-20] MEDS: FLUOCINONIDE 0.05% CREAM (60 GM TUBE) TP SCH ×2 (10:51→14:29)
[2018-02-20 10:53] LABS: ALBUMIN 3.6 g/dl (3.4-5.0); ALK PHOS 61 U/L (45-117); ANION GAP 8 MMOL/L (8-16); BILIRUBIN,TOTAL 0.9 mg/dL (0.2-1); BLOOD UREA NITROGEN 13 mg/dL (7-18); CALCIUM 8.6 mg/dL (8.5-10.1); CHLORIDE 103 mmol/L (98-107); CO2 28 mmol/L (21-32); CREATININE 0.7 mg/dL (0.55-1.3); GLUCOSE,RANDOM 86 mg/dL (74-106); SGOT/AST 21 U/L (15-37); SGPT/ALT 20 U/L (13-61); SODIUM 139 mmol/L (136-145); TOT PROT 6.6 g/dl (6.4-8.2)
[2018-02-20] MEDS ORDERED: amLODIPine BESYLATE 10 MG TABLET (FP) PO SCH (11:00)
--- NOTE | 2018-02-20 11:08 | PN ---
[facility] CIWA - CIWA Score Nausea/Vomitin-Mild Nausea/No Vomiting Muscle Tremors: 3 Anxiety: 3 Agitation: 3 Paroxysmal Sweats: 1-Minimal Palms Moist Orientation: 1-Uncertain about Date Tacttile Disturbances: 0-None Auditory Disturbances: 0-None Visual Disturbances: 0-None Headache: 2-Mild CIWA-Ar Total Score: 14 BHS COWS - Scale Resting Pulse: 0= NM 80 or Below Sweatin= Chills/Flushing Restless Observation: 0= Sits Still Pupil Size: 0= Normal to Room Light Bone or Joint Aches: 2= Severe Diffuse Aches Runny Nose/ Eye Tearin= Runny Nose/Eyes GI Upset > 30mins: 2= Nausea/Diarrhea Tremor Observation of Outstretched Hands: 2= Slight Tremor Visible Yawning Observation: 1= 1-2x During Session Anxiety or Irritability: 2=Irritable/Anxious Goose Flesh Skin: 0=Smooth Skin COWS Score: 12 S Progress Note (SOAP) Subjective: body aches tremor joints pain sweating restlessness Objective: 02/20/18 11:09 Vital Signs Temperature 98.5 F 02/20/18 09:08 Pulse Rate 75 02/20/18 09:08 Respiratory Rate 18 02/20/18 09:08 Blood Pressure 161/94 02/20/18 09:08 O2 Sat by Pulse Oximetry (%) Laboratory Last Values WBC 6.3 K/mm3 (4.0-10.0) 02/20/18 07:00 RBC 3.99 M/mm3 (4.00-5.60) L 02/20/18 07:00 Hgb 13.0 GM/dL (11.7-16.9) 02/20/18 07:00 Hct 38.8 % (35.4-49) 02/20/18 07:00 MCV 97.3 fl (80-96) H 02/20/18 07:00 MCH 32.7 pg (25.7-33.7) 02/20/18 07:00 MCHC 33.6 g/dl (32.0-35.9) 02/20/18 07:00 RDW 13.7 % (11.9-15.9) 02/20/18 07:00 Plt Count 207 K/MM3 (134-434) 02/20/18 07:00 MPV 8.4 fl (7.5-11.1) 02/20/18 07:00 Sodium 139 mmol/L (136-145) 02/20/18 07:00 Potassium 4.0 mmol/L (3.5-5.1) 02/20/18 07:00 Chloride 103 mmol/L (98-107) 02/20/18 07:00 Carbon Dioxide 28 mmol/L (21-32) 02/20/18 07:00 Anion Gap 8 MMOL/L (8-16) 02/20/18 07:00 BUN 13 mg/dL (7-18) 02/20/18 07:00 Creatinine 0.7 mg/dL (0.55-1.3) 02/20/18 07:00 Creat Clearance w eGFR > 60 (>60) 02/20/18 07:00 Random Glucose 86 mg/dL (74-106) 02/20/18 07:00 Calcium 8.6 mg/dL (8.5-10.1) 02/20/18 07:00 Total Bilirubin 0.9 mg/dL (0.2-1) 02/20/18 07:00 AST 21 U/L (15-37) 02/20/18 07:00 ALT 20 U/L (13-61) 02/20/18 07:00 Alkaline Phosphatase 61 U/L (45-117) 02/20/18 07:00 Total Protein 6.6 g/dl (6.4-8.2) 02/20/18 07:00 Albumin 3.6 g/dl (3.4-5.0) 02/20/18 07:00 lab noted Assessment: 02/20/18 11:10 withdrawal sx Plan: continue detox
[2018-02-20 13:24] VITALS: BP 167/107; PULSE 73
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
[2018-02-20] MEDS ORDERED: traZODone HCL 50 MG TABLET (FP) PO SCH (22:00)
[2018-02-20] MEDS ORDERED: QUEtiapine FUMARATE 100 MG TABLET (FP) PO SCH (22:00)
[2018-02-20] MEDS ORDERED: chlordiazePOXIDE HCL 25 MG CAPSULE PO SCH (23:00)
[2018-02-21] MEDS ORDERED: METHADONE HCL 5 MG TABLET (FOR DETOX USE ONLY) PO SCH (10:00)
[2018-02-21] MEDS ORDERED: chlordiazePOXIDE 5 MG CAPSULE PO SCH (23:00)
[2018-02-22] MEDS ORDERED: chlordiazePOXIDE HCL 10 MG CAPSULE PO SCH (23:00)
[2018-02-23] MEDS ORDERED: METHADONE HCL 10 MG TABLET (FOR DETOX USE ONLY) PO SCH (10:00)
[2018-02-24] MEDS ORDERED: METHADONE HCL 5 MG TABLET (FOR DETOX USE ONLY) PO SCH (06:00)
== END 2018-02-20 14:30 | disposition left against medical advice (07) | DRG 773 ==
LOC: YASAS 14:07 → Y3N 19:21 → UNDODISIN 02-20 14:30
PROVIDERS: ADMIT Neuromusculoskeletal Medicine & OMM; ATTEND Neuromusculoskeletal Medicine & OMM
PROC: HZ2ZZZZ Detoxification Services for Substance Abuse Treatment (ICD-10-PCS; principal; 2018-02-19)
DX: F11.23 Opioid dependence with withdrawal (principal); F10.230 Alcohol dependence with withdrawal, uncomplicated; F17.213 Nicotine dependence, cigarettes, with withdrawal; F19.24 Other psychoactive substance dependence with psychoactive substance-induced mood disorder; I10 Essential (primary) hypertension; K21.9 Gastro-esophageal reflux disease without esophagitis; D64.9 Anemia, unspecified; L40.0 Psoriasis vulgaris; Z86.69 Personal history of other diseases of the nervous system and sense organs; F91.8 Other conduct disorders
CPT/HCPCS: 36415; 80053; 85027; 86593; J0735